=== PATIENT | male | born 1960 | race Caucasian/White ===

== ENCOUNTER 2018-12-30 05:49 | Day surgery (SDC) | payer MEDICARE, MEDICAID ==
[2018-12-20 15:42] LABS: BASOPHILS # (AUTO) 0.1 X10'3 (0-0.2); BASOPHILS % (AUTO) 1.2 % (0-1); EOSINOPHILS # (AUTO) 0.5 X10'3 (0-0.9); EOSINOPHILS % (AUTO) 4.8 % (0-6); LYMPHOCYTES # (AUTO) 2.2 X10'3 (1.1-4.8); LYMPHOCYTES % (AUTO) 23.3 % (21-51); MEAN CORPUSCULAR HEMOGLOBIN 31.1 PG (27.0-31.0); MEAN CORPUSCULAR VOLUME 91.5 FL (78-98); MEAN PLATELET VOLUME 7.8 FL (7.4-10.4); MONOCYTES # (AUTO) 0.7 X10'3 (0-0.9); MONOCYTES % (AUTO) 7.7 % (2-12); PRE OP HEMATOCRIT 43.9 % (42.0-52.0); PRE OP HEMOGLOBIN 14.9 g/dL (14.0-17.9); PRE OP PLATELET COUNT 165 X10'3 (140-440)
[2018-12-20 16:03] LABS: ALBUMIN 3.8 G/DL (3.4-5.0); ALBUMIN/GLOBULIN RATIO 1.1 (1.1-1.5); ALKALINE PHOSPHATASE 57 IU/L (46-116); BLOOD UREA NITROGEN 13 MG/DL (7-18); BUN/CREATININE RATIO 15.5 (5.4-32.0); CHLORIDE 105 MMOL/L (99-107); CREATININE 0.84 MG/DL (0.60-1.10); PRE OP ALT 38 U/L (30-65); PRE OP ANION GAP 6 (8-16); PRE OP AST 18 U/L (10-37); PRE OP BILIRUB, TOTAL 0.4 MG/DL (0.0-1.0); PRE OP GLUCOSE 103 MG/DL (70-104); PRE OP SODIUM 138 MMOL/L (135-145); TOTAL CARBON DIOXIDE 27.2 MMOL/L (24-32); TOTAL PROTEIN 7.3 G/DL (6.4-8.2); eGFR > 90 ML/MIN
[~2018-12-30] VITALS: Ht 182.9 cm; Wt 124.7 kg
[~2018-12-30 05:49] MED LIST: GABA-534 PO; INSU300I SQ; METF-950 PO; MULT-1141 PO; OXYC-511 PO; PIOG45TA65 PO
[2018-12-30 06:00] VITALS: BP 116/82
--- NOTE | 2018-12-30 06:14 | NUR ---
PCN ALLERGY: PT STATES HAS HAD KEFLEX/ANCEF IN THE PAST WITH NO ISSUES. ANCEF GIVEN PRE-OP ORDERED Addendum: 12/30/18 at 0718 by Samanta Sanchez RN Amended: Links added.
[2018-12-30] MEDS ORDERED: famotidine 20mg tablet PO ONE (06:30)
[2018-12-30] MEDS ORDERED: ringers solution, lacted 1,000 ML IV SCH ×2 (06:30→06:58)
[2018-12-30] MEDS ORDERED: cefazolin/dext.iso 2gm/100 ML IV ONE (06:30)
[2018-12-30] MEDS ORDERED: triamcinolone acetonide 40mg/ml inj ONE (06:45)
[2018-12-30] MEDS ORDERED: BUPIVAcaine/PF 2.5mg/ml (0.25%) 10ml vial ONE (06:45)
[2018-12-30] MEDS ORDERED: LIDOcaine 0.5% (5mg/ml) 50ml vial ONE (06:56)
[2018-12-30] MEDS ORDERED: hydrALAZINE 20mg/ml inj. IV PRN (07:00)
[2018-12-30] MEDS ORDERED: labetalol 20mg/4ml (5mg/ml) syringe IV PRN (07:00)
[2018-12-30] MEDS ORDERED: morphine 4 MG/ML inj SYRINge IV PRN ×2 (07:00)
[2018-12-30] MEDS ORDERED: ondansetron/PF 4mg/2ml inj IV PRN (07:00)
[2018-12-30] MEDS ORDERED: fentaNYL/PF 50MCG/1 ML 2ML syringe ONE (07:45)
[2018-12-30] MEDS ORDERED: MIDAZolam 5mg/5ml vial ONE (07:45)
[2018-12-30 08:28] VITALS: BP 121/67
--- NOTE | 2018-12-30 08:28 | NUR ---
Received from OR via [facility] , accompanied by Anesthesiologist JOHN and report given by Anesthesiolgist. PATIENT WITH 20G PIV IN RIGHT UE RUNNING LR AT 100. VSS. LEFT WRIST DRESSING IS CDI WITH + CAP REFILL AND MOVEMEMENT. SLIGHT NUMBNESS ACCORDING TO PATIENT. Addendum: 12/30/18 at 0839 by Guerrero Coats RN, RN Amended: Links added.
[2018-12-30 08:38] VITALS: BP 121/77
[2018-12-30 08:48] VITALS: BP 120/78
[2018-12-30 08:58] VITALS: BP 125/82
--- NOTE | 2018-12-30 09:15 | NUR ---
ALL DC CRITERIA HAS BEEN MET. IV TAKEN OUT WITHOUT COMPLICATIONS. ALL INSTRUCTIONS COVERED AND ALL QUESTIONS ANSWERED. DRESSINGS CDI. OUT VIA WHEELCHAIR TO PERSONAL VEHICLE WHERE PATIENT WAS SECURED IN AND DRIVEN HOME BY FAMILY. AND PATIENT GIVEN ALL DC INSTRUCTIONS. Addendum: 12/30/18 at 0917 by Guerrero Coats RN, RN Amended: Links added.
== END 2018-12-30 09:08 | disposition home or self-care (01) ==
LOC: PAS 05:49
PROVIDERS: ATTEND Orthopaedic Surgery Hand Surgery
DX: G56.02 Carpal tunnel syndrome, left upper limb (principal); M77.11 Lateral epicondylitis, right elbow; Z88.6 Allergy status to analgesic agent; Z88.0 Allergy status to penicillin; Z91.040 Latex allergy status; Z91.048 Other nonmedicinal substance allergy status; Z79.899 Other long term (current) drug therapy; Z87.891 Personal history of nicotine dependence; Z72.89 Other problems related to lifestyle
CPT/HCPCS: 20551; 29848; 36415; 80053; 82948; 85025; 93005; J2001; J2250; J2270; J3010; J3301; J3490; A4215; A4618; A6449; A7000; J7120